=== PATIENT | female | born 1990 | race Caucasian/White ===

== ENCOUNTER → 2016-04-12 | Outpatient (CLI) | payer BC | LOC: LAC 14:08 | DX: Z39.1 Encounter for care and examination of lactating mother (principal); Z71.89 Other specified counseling ==

== ENCOUNTER 2018-04-10 05:40 | Inpatient (IN) | payer BC ==
[2018-04-10] VITALS (20 sets, daily range): BP systolic 100–131; BP diastolic 53–98; PULSE 63–112; TEMP 98.2–98.9
[~2018-04-10] VITALS: Ht 162.7 cm; Wt 74.5 kg
--- NOTE | 2018-04-10 05:45 | NUR ---
Pt here for scheduled with . Clean gown on. EFM and TOCO explained and applied. Pt denies contractions, LOF and vaginal bleeding. Reports good movement. Gender unknown. IV started and labs obtained via IV site. LR bolus infusing without difficulties. Consents signed and vital signs obtained. Plan of care explained. Call light within reach.
--- NOTE | 2018-04-10 06:15 | NUR ---
Assumed care of patient. Here for a repeat section. Iv started by Zofia vera Assessment done, questions offered and answered.
[2018-04-10] MEDS ORDERED: PRENATAL (06:29)
[2018-04-10 06:34] LABS: BASO % 0.2 % (0.0-2.0); EOS # 0.1 (0.0-0.7); EOS % 1.8 % (0-4.0); GRAN # 3.2 (1.4-6.5); GRAN % 64.9 % (42.2-75.2); HEMOGLOBIN 11.4 g/dl (12.5-16.0); LYMPH # 1.3 (1.2-3.4); LYMPH % 25.3 % (20.0-51.0); MEAN CELL VOLUME 88 fl (80.0-100.0); MEAN CORPUSCULAR HEMOGLOBIN 29 pg (27.0-31.0); MEAN CORPUSCULAR HGB CONC 32 g/dl (33.0-37.0); MEAN PLATELET VOLUME 12.8 fl (7.4-10.4); MONO # 0.4 (0.1-0.6); MONO % 7.4 % (1.7-9.3); PLATELET COUNT 141 K/mm3 (130-400); REDCELL DISTRIBUTION WIDTH-CV 14.1 % (11.5-14.5)
[2018-04-10 06:35] LABS: HEMATOCRIT 35.3 % (37.0-47.0)
--- NOTE | 2018-04-10 08:35 | NUR ---
To pacu via bed with this nurse and Demarcus nava Monitors on, spouse at bedside. Denies any needs at this time.
--- NOTE | 2018-04-10 08:45 | NUR ---
0846 Ephedrine 10 mg iv given for blood pressure of75/41. Patient states feeling nauseated. Blood pressure back up to 120/73
--- NOTE | 2018-04-10 08:50 | NUR ---
States still feeling nauseated. Zofran 4 mg iv given as ordered by Dr. Sanchez. Baby to breast at this time.
--- NOTE | 2018-04-10 09:00 | NUR ---
States feeling better. Holds baby lovingly.
--- NOTE | 2018-04-10 09:05 | NUR ---
Dismiss to room 221 from pacu, holds baby to chest. Nibp on, scds on and running. Spouse at bedside. Denies any needs at this time.
--- NOTE | 2018-04-10 09:30 | NUR ---
Rests in bed, alert. States feeling better. Denies any pain at this time.
--- NOTE | 2018-04-10 10:00 | NUR ---
Rests in bed, alert, denies any needs at this time.
--- NOTE | 2018-04-10 10:15 | NUR ---
Rests in bed, alert. baby. Denies any needs at this time.
[2018-04-11 00:40] VITALS: BP 110/69; PULSE 69; TEMP 98
[2018-04-11 05:10] VITALS: BP 112/68; PULSE 73; TEMP 98.2
[2018-04-11 07:27] VITALS: BP 127/77; PULSE 74; TEMP 97.7
--- NOTE | 2018-04-11 08:46 | NUR ---
Initial visit; Parents thanked [employer] for offering congratulations and God's blessings for the of their son. [employer] thanked them for choosing [facility].
[2018-04-11] MEDS ORDERED: IBU800 M1 PO (12:36)
[2018-04-11] MEDS ORDERED: TYLENOL 325MG325 MG PO (12:37)
[2018-04-11 16:57] VITALS: BP 119/73; PULSE 79; TEMP 98
[2018-04-11 21:30] VITALS: BP 126/81; PULSE 88; TEMP 98
[2018-04-12 08:50] VITALS: BP 119/76; PULSE 81; TEMP 98.8
== END 2018-04-12 13:25 | disposition home or self-care (01) | DRG 788 ==
LOC: OB 05:40 → LDR 06:54 → OB 07:10
PROVIDERS: ADMIT Student in an Organized Health Care Education/Training Program
PROC: 10D00Z1 Extraction of Products of Conception, Low, Open Approach (ICD-10-PCS; principal; 2018-04-10)
DX: O34.211 Maternal care for low transverse scar from previous cesarean delivery (principal); Z37.0 Single live birth; O26.893 Other specified pregnancy related conditions, third trimester; Z67.91 Unspecified blood type, Rh negative; Z3A.39 39 weeks gestation of pregnancy; Z88.1 Allergy status to other antibiotic agents; Z88.0 Allergy status to penicillin; Z88.2 Allergy status to sulfonamides; O69.81X0 Labor and delivery complicated by cord around neck, without compression, not applicable or unspecified
CPT/HCPCS: J1580; J1885; J2175; J2370; J2405; J2590; J3010; J7120